=== PATIENT | male | born 1950 | race Caucasian/White ===

== ENCOUNTER 2018-04-09 11:02 | Emergency (ER) | payer MEDICARE, BC ==
[~2018-04-09] VITALS: Ht 180.3 cm; Wt 77.1 kg
[2018-04-09] MEDS ORDERED: OCUFLOX5 ML OPHTHALMIC (12:23)
[2018-04-09 12:33] VITALS: BP 153/69
== END 2018-04-09 12:34 | disposition home or self-care (01) ==
LOC: M.ERS 11:02
DX: S00.252A Superficial foreign body of left eyelid and periocular area, initial encounter (principal); X58.XXXA Exposure to other specified factors, initial encounter; Y93.89 Activity, other specified; Y92.89 Other specified places as the place of occurrence of the external cause; Y99.8 Other external cause status